=== PATIENT | female | born 1965 | race Caucasian/White ===

== ENCOUNTER → 2017-02-20 | Outpatient (CLI) | payer OTHER ==
[2017-02-20 11:26] LABS: BLOOD UREA NITROGEN 10 mg/dL (7-22); CALCIUM 8.6 mg/dL (8.7-10.7); EST GLOMERULAR FILTRATION > 60 (>60 ml/min/1.73m(2)); SERUM ALBUMIN 3.9 g/dL (3.5-4.8)
[2017-02-20 13:31] LABS: VITAMIN D 25-HYDROXY 26.4 NG/ML (30-100)
== END ==
LOC: LAB 09:48
PROVIDERS: ATTEND Internal Medicine
DX: E78.5 Hyperlipidemia, unspecified (principal); I10 Essential (primary) hypertension; E55.9 Vitamin D deficiency, unspecified; R53.83 Other fatigue; Z83.3 Family history of diabetes mellitus
CPT/HCPCS: 36415; 80053; 82306; 82550; 83036; 84443

== ENCOUNTER → 2017-03-02 | Outpatient (CLI) | payer OTHER ==
--- NOTE | 2017-03-02 11:23 | DI ---
XR UPPER GI W/SBFT,03/02/2017 9:28 AM: Clinical History: Diminished gastric emptying. Previous Exam: None at this facility. Findings: Multiple images are obtained from an upper gastrointestinal series and small bowel follow-through dem onstrating normal course, caliber and mucosal pattern of the esophagus. The gastroesophageal junction is within normal limits. There was some prominence of the gastroesophag eal junction at times which was intermittent. There was some normal appearing gastric rugal folds which were slightly prominent. There was no evide nce of ulceration and there is normal gastric distention. The duodenal bulb and duodenal sweep were normal. The mucosal pattern of the duodenum was normal. The re was severe reflux noted during the exam and throughout the exam with reflux noted to the level of the posterior pharynx. Ileum also demonstrates a normal appearance. Contrast moved from the stomach into the colon within a period of approximately 15 minutes. The terminal ileum is normal at its insertion on the cecum. Skeletal structures are unremarkable. The cervical spine is also normal. Impression: 1. Severe gastroesophageal reflux disease. 2. Prominent gastric folds could represent underlying gastritis. 3. Normal small bowel follow-through although transit time was extremely fast with no evidence of del ayed gastric emptying.
== END ==
LOC: RAD 09:20
PROVIDERS: ATTEND Internal Medicine
DX: K30 Functional dyspepsia (principal); K21.9 Gastro-esophageal reflux disease without esophagitis
CPT/HCPCS: 74249

== ENCOUNTER → 2017-03-08 | Outpatient (CLI) | payer OTHER ==
[2017-03-11 10:07] LABS: TTG AB IGA <1.2 U/mL (())
[2017-03-14 21:26] LABS: IGA, SERUM 388 mg/dL (61 - 356)
== END ==
LOC: LAB 16:16
PROVIDERS: ATTEND Internal Medicine
DX: R10.84 Generalized abdominal pain (principal); R14.0 Abdominal distension (gaseous)
CPT/HCPCS: 36415; 81376; 82784

== ENCOUNTER 2017-03-29 08:55 | Day surgery (SDC) | payer OTHER ==
[~2017-03-29 08:55] MED LIST: LIDOCAINE 2% VISCOUS(20 MG/1 ML) - 15 ML UD CUP PO ONE; LIDOCAINE HCL/PF 2% (20 MG/ML) - 5 ML SYRINGE ONE; LIDOCAINE W/ SODIUM BICARB 0.5 ML SYR ONE; Lactated Ringers 1,000 ML PRIMARY IV ONE; MIDAZOLAM 5 MG/1 ML ONE; fentaNYL Inj 100 MCG/2 ML VIAL ONE
[2017-03-29 09:37] LABS: URINE SPECIFIC GRAVITY - MAN 1.024
--- NOTE | 2017-03-29 10:45 | GEN.OPNOTE ---
EGD / Colonoscopy Report Surgery Date: 03/29/17 Preoperative Diagnosis: Chronic GERD, abdominal bloating, abdominal epigastric pain, change in bowel habits. Postoperative Diagnosis: Same. Procedure: #1 esophagogastroduodenoscopy with biopsy. #2 complete colonoscopy with multiple random biopsies. Surgeon: Claudio Covarrubias MD Anesthesia Provider: Willie Owens CRNA Anesthesia Type: MAC Indications: See preoperative diagnosis. EGD Findings: Esophagus: [Normal] GE Junction : [Normal] Fundus : [Fundic gland polyps] Body : [Normal] Prepyloric : [Normal] Small Intestine : [Normal] A lubricated flexible upper endoscope was inserted and passed through the esophagus and stomach into the duodenum. The duodenum and duodenal bulb were unremarkable. The pyloric channel was widely patent. Random antral biopsies were taken. Hemostasis was assured. There are multiple fundic gland polyps. Several of them were removed and sent for pathologic analysis. Hemostasis was assured. The scope was withdrawn into the distal esophagus. The GE junction showed no inflammatory changes. The patient is on a proton pump inhibitor. Multiple biopsies were taken at and above the Z line. Hemostasis was assured. The scope was withdrawn through a normal-appearing esophagus and brought through the hypopharynx under suction completing that portion of the procedure. Colonoscopy Findings: Prep : [Excellent] Cecum : [Normal] Ascending :[Normal] Transverse : [Normal] Sigmoid : [A few diverticuli otherwise normal] Rectum : [Normal] Digital Rectal Exam : [Normal] Terminal ileum: [Visually normal] A lubricated flexible colonoscope was inserted and passed to the blind end of the cecum. The ileocecal valve and appendiceal orifice were clearly seen. The terminal ileum was intubated. The mucosa was unremarkable. The scope was withdrawn into the cecum. Air was aspirated as the scope was withdrawn. The entire colonoscopy was normal without polyp, tumor, neoplastic mass, infectious or inflammatory process identified. Because of her diarrhea random biopsies were taken of the right colon, transverse colon, sigmoid colon, and rectum. Patient tolerated the entire procedure well without complication. She was taken to outpatient surgery in stable condition. Follow-up will be with my office on an as-needed basis. We will call the biopsy results when available. Consider repeating gallbladder workup pending the findings.
[2017-03-29 11:13] VITALS: TEMP 97
[2017-03-29 11:17] VITALS: RESP 16
== END 2017-03-29 11:05 | disposition home or self-care (01) ==
LOC: SDSC 08:55
PROVIDERS: ATTEND Surgery
DX: K21.9 Gastro-esophageal reflux disease without esophagitis (principal); R14.0 Abdominal distension (gaseous); R10.13 Epigastric pain; R19.4 Change in bowel habit
CPT/HCPCS: 43239; 45380; 84703; J2250; J2704; J3010; J7120